=== PATIENT | male | born 2005 | race Caucasian/White ===

== ENCOUNTER 2023-11-12 15:38 | Emergency (ER) | payer OTHER, SELFPAY ==
--- OUTSIDE RECORDS SUMMARY | 2023-11-12 15:41 | XMS REPORT | Continuity of Care Document ---
Author Name Unknown Address [address] [facility] [address] [place] [id number] [facility] thconnect Address [address] [facility] [address] [place] [address] Care Team Providers Care Licensed Psychologist Name Role Phone Shayne Wilkins MD Attending Clinician [phone] Payers Payer Name Policy Type Policy Number Effective Date Expirati on Date Source Social History Social Habit Start Date Stop Date Quantity Comments Source Sex Assigned At [facility] Smoking Status Start Date Stop Date Source Unknown if ever smoked [facility] Vital Signs Vital Name Observation Time Observation Value Comments S ource Respiratory rate 2019-08-08 16:22:00 18 /min [facility] Body weight 2019-08-08 16:22:00 99.746 kg [facility] Oxygen saturation in Arterial blood by Pulse oximetry 2019-08-08 16:22:00 98 /min [facility] Systolic blood pressure 2019-08-08 16:22:00 135 mm[Hg] [facility] Diastolic blood pressure 2019-08-08 16:22:00 86 mm[Hg] [facility] Heart rate 2019-08-08 16:22:00 72 /min [facility] Body temperature 2019-08-08 16:22:00 36.83 [facility] Procedures Procedure Date / Time Performed Performing Clinicia n Source XR CHEST 2 VW 2019-08-08 17:03:48 Shayne Wilkins [facility] EKG-12 LEAD 2019-08-08 16:33:20 Shayne Wilkins [facility] NOTICE OF PRIVACY PRACTICES 2019-08-08 16:09:21 Doctor Unassigned, [place] [facility] CONSENT/REFUSAL FOR DIAGNOSIS AND TREATMENT 2019-08-08 16:09:11 Doctor Unassigned, [place] [facility] Encounters Start Date/Time End Date/Time Encounter Type Admission Type Attending Clinicians Care Facility Care Department Encounter ID Source 2019-08-08 11:25:14 2019-08-08 13:23:00 Emergency Shayne Wilkins [facility] [id number] [facility] Results Test Description Test Time Test Comments Results Resul t Comments Source XR CHEST 2 VW 8 17:08:14 No acute cardiopulmonary disease. * * * * * * * * ORIGINAL REPORT * * * * * * * *CHEST 2 VIEWS: HISTORY:Chest pain TECHNIQUE::?PA and lateral views of the chest are obtained. FINDINGS: The lungs are clear. The heart size and mediastinal silhouetteare normal. No pleural effusion or pneumothorax is seen. [facility], Radiant Results Inft User - 08/08/2019 12:08 PM CDT* * * * * * * * ORIGINAL REPORT * * * * * * * *CHEST 2 VIEWS:HISTORY:Chest painTECHNIQUE:: PA and lateral views of the chest are obtained. FINDINGS: The lungs are clear. The heart size and mediastinal silhouetteare normal. No pleural effusion or pneumothorax is seen.IMPRESSIONNo acute cardiopulmonary disease. [facility]
[2023-11-12] MEDS ORDERED: LIDOCAINE 1% MPF 30 ML VIAL ONE (16:33)
--- NOTE | 2023-11-12 16:42 | EDPHYS ---
Physician Documentation [facility] Name: Josh Saba Age: 18 yrs Sex: Male : 2005 Arrival Date: 11/12/2023 Time: 15:38 Bed 9 Private MD: ED Physician Prashant Kong HPI: 11/12 16:41 This 18 yrs old Male presents to ER via Ambulatory with complaints of PIERCING PROBELM. ms3 16:41 18-year-old male with past medical history of ADD/ADHD, bipolar disorder [place] [facility] [place] for lip piercing embedded in his inner lip. Patient states he was unable to unscrew the piercing and it has been swelling and the packing is now embedded in his lip. Patient states this is occurred over the last 2 weeks. Patient denies pain unless he tries to push the backing out.. Historical: - Allergies: 16:15 No Known Allergies; cm10 - PMHx: 16:15 ADD/ADHD; Bipolar disorder; cm10 - Immunization history:: Adult Immunizations unknown. - Social history:: Smoking status: Reported history of juuling and/or vaping. ROS: 16:41 Constitutional: Negative for fever, and chills. Neck: Negative for injury, pain, and ms3 swelling, Cardiovascular: Negative for chest pain, and palpitations. Respiratory: Negative for shortness of breath, cough, wheezing, and pleuritic chest pain, Abdomen/GI: Negative for abdominal pain, nausea, vomiting, diarrhea, and constipation, MS/Extremity: Negative for injury and deformity, 16:41 ENT: Positive for Swollen upper lip with foreign body, 16:41 All other systems are negative, Exam: 16:41 Constitutional: This is a well developed, well nourished patient who is awake, alert, ms3 and in no acute distress. 16:41 ENT: Mouth: Lips: Swollen with external piercing visible. Erosion of inner lip with backing embedded in upper lip, 16:41 Cardiovascular: Regular rate and rhythm with a normal S1 and S2. No gallops, murmurs, ms3 or rubs. Normal PMI, no JVD. No pulse deficits. Respiratory: Lungs have equal breath sounds bilaterally, clear to auscultation and percussion. No rales, rhonchi or wheezes noted. No increased work of breathing, no retractions or nasal flaring. Abdomen/GI: Soft, non-tender, with normal bowel sounds. No distension or tympany. No guarding or rebound. No evidence of tenderness throughout. Vital Signs: 16:14 BP 129 / 96; Pulse 79; Resp 16; Temp 98.3(TE); Pulse Ox 99% on R/A; Weight 104.33 kg; cm10 Pain 9/10; 16:14 Pain Scale: Adult cm10 Procedures: 16:41 Foreign Body Removal: Lip Piercing, from the upper lip, by using a hemostat, incising ms3 to remove, using lidocaine 1% without epinephrine to anesthesize the area, Dressing: none, The patient tolerated the removal well. MDM: 16:40 Patient medically screened. ms3 16:41 Data reviewed: vital signs, nurses notes, and as a result, I will discharge patient. ms3 Historians other than the Patient: Parent: Patient's mother. Care significantly affected by the following Social Determinants of Health: Poor access to healthcare and/or lack of insurance. Counseling: I had a detailed discussion with the patient and/or guardian regarding the historical points, exam findings, and any diagnostic results supporting the discharge/admit diagnosis, the need for outpatient follow up, to return to the emergency department if symptoms worsen or persist or if there are any questions or concerns that arise at home. Special discussion: I discussed with the patient/guardian in detail that at this point there is no indication for admission to the hospital. It is understood, however, that if the symptoms persist or worsen the patient needs to return immediately for re-evaluation. ED course: Piercing removed. Patient given prescription for Paradox and Keflex. Patient to follow-up with Dr. Norwood in 2 to 3 days. Patient understands and agrees with plan. All questions were answered. Return precautions discussed include worsening symptoms, or any other concerns. Administered Medications: No medications were administered Disposition Summary: 11/12/23 16:41 Discharge Ordered Notes: Location: Home ms3 Condition: Stable ms3 Diagnosis - Piercing embeded in upper lip ms3 Followup: ms3 - With: Presley Norwood DO - When: 2 - 3 days - Reason: Recheck today's complaints Discharge Instructions: - Discharge Summary Sheet ms3 - Skin Foreign Body ms3 Forms: - Medication Reconciliation Form ms3 - Thank You Letter ms3 - Antibiotic Education ms3 - Prescription Opioid Use ms3 - Patient Portal Instructions ms3 - Leadership Thank You Letter ms3 Prescriptions: - Peridex 0.12 % Mucous Membrane Mouthwash - swish 15 milliliter MUCOUS MEMBRANE route after meals and at bedtime; 600 ms3 milliliter; Refills: 0, Product Selection Permitted - Cephalexin 500 mg Oral Capsule - take 1 capsule ORAL route every 8 hours for 10 days; 30 capsule; Refills: 0, ms3 Product Selection Permitted Signatures: Prashant Kong DO DO ms3 Ivis Mendoza, RN RN cm10
--- NOTE | 2023-11-12 16:42 | ER ---
Nurse's Notes [facility] Name: Josh Saba Age: 18 yrs Sex: Male : 2005 Arrival Date: 11/12/2023 Time: 15:38 Bed 9 Private MD: Diagnosis: Piercing embeded in upper lip Presentation: 11/12 16:14 Chief complaint: Patient states: Lip piercing imbedded in lip. Pt states he noticed it cm10 a few days ago. Coronavirus screen: Client denies travel out of the [place] in the last 14 days. Ebola Screen: Patient denies travel to an Ebola-affected area in the 21 days before illness onset. No symptoms or risks identified at this time. Initial Sepsis Screen: Does the patient meet any 2 criteria? No. Patient's initial sepsis screen is negative. Does the patient have a suspected source of infection? No. Patient's initial sepsis screen is negative. Risk Assessment: Do you want to hurt yourself or someone else? Patient reports no desire to harm self or others. Onset of symptoms was November 12, 2023. 16:14 Method Of Arrival: Ambulatory cm10 16:14 Acuity: CARLOS 4 cm10 Triage Assessment: 16:52 General: Appears in no apparent distress. comfortable, Behavior is calm, cooperative. cm10 Pain: Complains of pain in upper vermilion border and upper lip. Neuro: No deficits noted. Level of Consciousness is awake, alert, Oriented to person, place, time, situation. Respiratory: No deficits noted. Airway is patent Respiratory effort is even, unlabored, Respiratory pattern is regular, symmetrical. : No deficits noted. No signs and/or symptoms were reported regarding the genitourinary system. Derm: No deficits noted. Skin is intact, Skin is pink, warm \T\ dry. Musculoskeletal: No deficits noted. Range of motion: intact in all extremities. Historical: - Allergies: 16:15 No Known Allergies; cm10 - PMHx: 16:15 ADD/ADHD; Bipolar disorder; cm10 - Immunization history:: Adult Immunizations unknown. - Social history:: Smoking status: Reported history of juuling and/or vaping. Screenin:53 [facility] ED Fall Risk Assessment (Adult) History of falling in the last 3 months, cm10 including since admission No falls in past 3 months (0 pts) Confusion or Disorientation No (0 pts) Intoxicated or Sedated No (0 pts) Impaired Gait No (0 pts) Mobility Assist Device Used No (0 pt) Altered Elimination No (0 pt) Score/Fall Risk Level 0 - 2 = Low Risk Oriented to surroundings, Maintained a safe environment, Hourly rounding (assess needs \T\ fall precautionary measures) done. Abuse screen: Denies threats or abuse. Denies injuries from another. Nutritional screening: No deficits noted. Tuberculosis screening: No symptoms or risk factors identified. Vital Signs: 16:14 BP 129 / 96; Pulse 79; Resp 16; Temp 98.3(TE); Pulse Ox 99% on R/A; Weight 104.33 kg; cm10 Pain 9/10; 16:14 Pain Scale: Adult cm10 ED Course: 15:41 Patient arrived in ED. mg5 15:43 Prashant Kong DO is Attending Physician. ms3 16:15 Triage completed. cm10 16:15 Arm band placed on Patient placed in an exam room, on a stretcher. cm10 16:41 Presley Norwood DO is Referral Physician. ms3 16:54 Patient has correct armband on for positive identification. Provided Education on: ER cm10 process and procedures. . 16:54 Piercing removal from lip. Patient did not have IV access during this emergency room cm10 visit. Administered Medications: No medications were administered Medication: 16:53 VIS not applicable for this client. cm10 Outcome: 16:41 Discharge ordered by MD. ms3 16:54 Discharged to home ambulatory, cm10 16:54 Condition: good 16:54 Discharge instructions given to patient, Instructed on discharge instructions, follow up and referral plans. medication usage, Demonstrated understanding of instructions, follow-up care, medications, Prescriptions given X 1, 16:55 Patient left the ED. cm10 Signatures: Prashant Kong DO DO ms3 Ivis Mendoza, RAFAEL RN Roxy Smith mg5
[2023-11-12 19:41] VITALS: BP 129/96; TEMP 98.3; O2SAT 99
== END 2023-11-12 16:55 | disposition home or self-care (01) ==
LOC: ER 15:38
DX: S00.551A Superficial foreign body of lip, initial encounter (principal)
CPT/HCPCS: J2001

== ENCOUNTER 2024-11-24 18:25 | Emergency (ER) | payer OTHER ==
--- OUTSIDE RECORDS SUMMARY | 2024-11-24 18:29 | XMS REPORT | Continuity of Care Document ---
Author Name Unknown Address [address] [facility] [address] [place] [address] [facility] thconnect Address [address] [facility] [address] [place] [address] Care Team Providers Care Soaking Tank Worker Name Role Phone Shayne Wilkins MD Attending Clinician Payers Payer Name Policy Type Policy Number Effective Date Expirati on Date Source Social History Social Habit Start Date Stop Date Quantity Comments Source Sex [facility] Smoking Status Start Date Stop Date Source Unknown if ever smoked [facility] Vital Signs Vital Name Observation Time Observation Value Comments S ource Respiratory rate 2019-08-08 16:22:00 18 /min [facility] Body weight 2019-08-08 16:22:00 99.746 kg [facility] Oxygen saturation in Arterial blood by Pulse oximetry 2019-08-08 16:22:00 98 /min [facility] Systolic blood pressure 2019-08-08 16:22:00 135 mm[Hg] [facility] Diastolic blood pressure 2019-08-08 16:22:00 86 mm[Hg] [facility] Heart rate 2019-08-08 16:22:00 72 /min [facility] Body temperature 2019-08-08 16:22:00 36.83 [facility] Procedures Procedure Date / Time Performed Performing Clinicia n Source XR CHEST 2 VW 2019-08-08 17:03:48 Shayne Wilkins [facility] EKG-12 LEAD 2019-08-08 16:33:20 Shayne Wilkins [facility] NOTICE OF PRIVACY PRACTICES 2019-08-08 16:09:21 Doctor Unassigned, [facility] CONSENT/REFUSAL FOR DIAGNOSIS AND TREATMENT 2019-08-08 16:09:11 Doctor Unassigned, [facility] Encounters Start Date/Time End Date/Time Encounter Type Admission Type Attending Clinicians Care Facility Care Department Encounter ID Source 2019-08-08 11:25:14 2019-08-08 13:23:00 Emergency Shayne Wilkins [facility] [id number] [facility] Results Test Description Test Time Test Comments [...] No pleural effusion or pneumothorax is seen. [facility], Radiant Results Inft User - 08/08/2019 12:08 PM CDT* * * * * * * * ORIGINAL REPORT * * * * * * * *CHEST 2 VIEWS:HISTORY:Chest painTECHNIQUE:: PA and lateral views of the chest are obtained. FINDINGS: The lungs are clear. The heart size and mediastinal silhouetteare normal. No pleural effusion or pneumothorax is seen.IMPRESSIONNo acute cardiopulmonary disease. [facility]
[2024-11-24] MEDS ORDERED: IBUPROFEN 400 MG TAB ONE (19:09)
[2024-11-24] MEDS ORDERED: TDAP (DIPHTH,PERTUSS(ACELL),TET VAC) 0.5 ML VIAL IMVAC ONE (19:09)
--- NOTE | 2024-11-24 20:01 | RAD REPORT ---
EXAM: XR Knee Left 3 View HISTORY: [facility] MAIN PAIN Bed Name: IW1 COMPARISON: None TECHNIQUE: 3 views of the left knee were obtained. FINDINGS: No knee effusion is seen. There is no evidence of acute fracture or dislocation. No signif icant degenerative changes are seen. No soft tissue swelling or other soft tissue abnormality is present. IMPRESSION: No evidence of acute osseous abnormality.
--- NOTE | 2024-11-24 20:21 | RAD REPORT ---
EXAM: XR Hand Left 3 View HISTORY: [facility] MAIN PAIN Bed Name: IW1 COMPARISON: None TECHNIQUE: 3 radiographic views of the LEFT hand submitted. FINDINGS: No evidence of acute fracture or dislocation. Joint alignment is maintained. No soft tissu e swelling is seen.. No significant degenerative changes are present. IMPRESSION: No significant bone or joint abnormality.
--- NOTE | 2024-11-24 20:21 | RAD REPORT ---
EXAMINATION: XR Hip Right 2 View CLINICAL INDICATION: Male, 19 years old. [facility] MAIN PAIN Bed Name: IW1 TECHNIQUE: 2 view radiograph of the right hip were obtained. COMPARISON: No prior exam. FINDINGS: No evidence of fracture or dislocation. Normal alignment. No evidence of arthropathy. Lucen t 1.6 cm lesion within the right femoral neck. Soft tissues are unremarkable. IMPRESSION: No acute osseous abnormalities. Lucent 1.6 cm lesion within the right femoral neck, may represent a bone cyst or nonossifying fibroma .
--- NOTE | 2024-11-24 21:25 | ER ---
Nurse's Notes [facility] Name: Josh Saba Age: 19 yrs Sex: Male : 2005 Arrival Date: 11/24/2024 Time: 18:25 Bed DX3 Private MD: Diagnosis: Contusion of left knee;Pain in right hip;Abrasion of abdominal wall, initial encounter;Abrasion of left hand, initial encounter;Abrasion of right elbow, initial encounter Presentation: 11/24 18:55 Chief complaint: Patient states: was on a electric skateboard and fell off, landed on left leg weird , has pain and swelling to left knee, did not hit his head. Coronavirus screen: At this time, the client does not indicate any symptoms associated with coronavirus-19. Ebola Screen: No symptoms or risks identified at this time. Initial Sepsis Screen: Does the patient meet any 2 criteria? No. Patient's initial sepsis screen is negative. Does the patient have a suspected source of infection? No. Patient's initial sepsis screen is negative. Risk Assessment: Do you want to hurt yourself or someone else? Patient reports no desire to harm self or others. Onset of symptoms was November 24, 2024. 18:55 Method Of Arrival: Wheelchair iw 18:55 Acuity: CARLOS 3 iw Triage Assessment: 20:35 General: Appears in no apparent distress. comfortable, Behavior is calm, cooperative, cm10 appropriate for age. Pain: Complains of pain in left wrist and left knee. Neuro: No deficits noted. Level of Consciousness is awake, alert, obeys commands, Oriented to person, place, time, situation, Appropriate for age. Respiratory: No deficits noted. Airway is patent Respiratory effort is even, unlabored, Respiratory pattern is regular, symmetrical. Musculoskeletal: Reports pain in left wrist and left knee. Injury Description: Abrasion sustained to right elbow, left arm, right knee and left knee. Historical: - Allergies: 18:56 No Known Allergies; iw - Home Meds: 18:56 None [Active]; iw - PMHx: 18:56 ADD/ADHD; Bipolar disorder; iw - PSHx: 18:56 None; iw - Immunization history:: Last tetanus immunization: unknown. - Infectious Disease History:: Denies. - Social history:: Smoking status: Reported history of juuling and/or vaping. Screenin:36 [facility] ED Fall Risk Assessment (Adult) History of falling in the last 3 months, cm10 including since admission Yes- single mechanical fall (1 pt) Confusion or Disorientation No (0 pts) Intoxicated or Sedated No (0 pts) Impaired Gait Yes (1 pt) Mobility Assist Device Used Yes (1 pt) Altered Elimination No (0 pt) Score/Fall Risk Level 3 or more points = High Risk Oriented to surroundings, Maintained a safe environment, Hourly rounding (assess needs \T\ fall precautionary measures) done. Abuse screen: Denies threats or abuse. Denies injuries from another. Nutritional screening: No deficits noted. Tuberculosis screening: No symptoms or risk factors identified. Vital Signs: 18:55 BP 110 / 67; Pulse 93; Resp 16; Temp 98.9; Pulse Ox 100% on R/A; Weight 86.18 kg; iw Height 6 ft. 2 in. ; Pain 8/10; 18:55 Body Mass Index 24.39 (86.18 kg, 187.96 cm) iw 18:55 Pain Scale: Adult iw ED Course: 18:26 Patient arrived in ED. ra3 18:27 Barney Ibarra MD is Attending Physician. ec2 18:27 Beau Mederos PA is PHCP. cp 18:56 Triage completed. iw 18:57 Arm band placed on. iw 19:59 XRAY Hip RIGHT 2 view In Process Unspecified. EDMS 19:59 XRAY Knee LEFT 3 view In Process Unspecified. EDMS 19:59 XRAY Hand LEFT 3 View In Process Unspecified. EDMS 20:37 Patient has correct armband on for positive identification. Provided Education on: ER cm10 process and procedures.. 21:50 No provider procedures requiring assistance completed. Patient did not have IV access cm10 during this emergency room visit. Dressings: non-adherent dressing x 1 right knee and left knee and left wrist. Crutch training done. 21:50 Wound care: to abrasion, located on right leg and right arm and right knee and right cm10 elbow and left leg and left arm and left knee and left wrist was cleaned with dressed with Neosporin. Administered Medications: 19:11 Drug: Ibuprofen PO 800 mg PO once Route: PO; cm10 21:14 Follow up: Response: No adverse reaction cm10 19:11 Drug: Boostrix Tdap IM 0.5 ml IM once; as a single dose Route: IM; Site: left deltoid; cm10 21:14 Follow up: Response: (VIS) Vaccine information sheet provided today. Questions and/or cm10 concerns addressed. VIS edition date: Jul 06, 2021.; No adverse reaction Medication: 20:36 Vaccine Information Statement (VIS) provided today. Questions and/or concerns cm10 addressed. VIS edition date: July 06, 2021. Outcome: 21:25 Discharge ordered by . silvio 21:57 Discharged to home with crutches, with family, cm10 21:57 Condition: good 21:57 Discharge instructions given to patient, Instructed on discharge instructions, follow up and referral plans. medication usage, wound care, Demonstrated understanding of instructions, follow-up care, medications, wound care, Prescriptions given X 2, 21:58 Patient left the ED. cm10 Signatures: Dispatcher [employer] Nati Durant RN RN iw Page, Corey, PA PA cp Martinez, Clarissa, RN RN cm10 Barney Ibarra MD MD ec2 Alexandra Cedeno ra3
--- NOTE | 2024-11-24 21:25 | EDPHYS ---
Physician Documentation [facility] Name: Josh Saba Age: 19 yrs Sex: Male : 2005 Arrival Date: 11/24/2024 Time: 18:25 Bed DX3 Private MD: ED Physician Barney Ibarra HPI: 11/24 19:10 This 19 yrs old Male presents to ER via Wheelchair with complaints of Hand Injury - cp Left. 19:10 The patient or guardian reports an abrasion, injury. cp 19:10 The complaints affect the akhtar side of left hand. Details of fall: The patient fell cp from an upright position, riding electric skateboard, and struck a concrete surface. Onset: The symptoms/episode began/occurred just prior to arrival. Associated injuries: The patient sustained injury to the abdomen, specifically the right lower flank, abrasion, left knee, abrasion, swelling. Historical: - Allergies: 18:56 No Known Allergies; iw - Home Meds: 18:56 None [Active]; iw - PMHx: 18:56 ADD/ADHD; Bipolar disorder; iw - PSHx: 18:56 None; iw - Immunization history:: Last tetanus immunization: unknown. - Infectious Disease History:: Denies. - Social history:: Smoking status: Reported history of juuling and/or vaping. ROS: 19:15 Constitutional: Negative for body aches, chills, fever, poor PO intake, cp 19:15 Eyes: Negative for injury, pain, redness, and discharge, cp 19:15 Neck: Negative for pain with movement, pain at rest, stiffness, 19:15 Cardiovascular: Negative for chest pain, 19:15 Respiratory: Negative for cough, shortness of breath, wheezing, 19:15 Abdomen/GI: Negative for vomiting, diarrhea, constipation, 19:15 Back: Negative for pain at rest, pain with movement, 19:15 MS/extremity: Positive for pain, tenderness, of the left hand and left knee, 19:15 Neuro: Negative for altered mental status, headache, loss of consciousness, syncope, weakness, 19:15 All other systems are negative, Exam: 19:15 Constitutional: The patient appears in no acute distress, alert, awake, non-toxic, well cp developed, well nourished, 19:15 Head/Face: Normocephalic, atraumatic. cp 19:15 Neck: C-spine: vertebral tenderness, is not appreciated, crepitus, is not appreciated, ROM/movement: is normal, is supple, without pain, no range of motions limitations, 19:15 Chest/axilla: Inspection: normal, Palpation: is normal, no crepitus, no tenderness, 19:15 Cardiovascular: Rate: normal, 19:15 Respiratory: the patient does not display signs of respiratory distress, Respirations: normal, no use of accessory muscles, no retractions, labored breathing, is not present, Breath sounds: are clear throughout, no decreased breath sounds, 19:15 Abdomen/GI: Inspection: small abrasion noted right lower flank with tenderness, Palpation: soft, in all quadrants, mild abdominal tenderness, in the right lower flank area, rebound tenderness, is not appreciated, involuntary guarding, is not appreciated, 19:15 Back: pain, is absent, ROM is normal, 19:15 Musculoskeletal/extremity: Extremities: noted in the right hip: tenderness, noted in the left knee: abrasion, swelling, tenderness, no evidence of decreased ROM, deformity, noted in the left hand: moderate size abrasion across akhtar side of hand with mild bleeding, no obvious deformity, full AROM, 19:15 Skin: injury, abrasion(s), small abrasion noted, of the right elbow, 19:15 Neuro: Orientation: to person, place \T\ time. Mentation: is normal, Motor: moves all fours, strength is normal, Sensation: is normal, Vital Signs: 18:55 BP 110 / 67; Pulse 93; Resp 16; Temp 98.9; Pulse Ox 100% on R/A; Weight 86.18 kg; iw Height 6 ft. 2 in. ; Pain 8/10; 18:55 Body Mass Index 24.39 (86.18 kg, 187.96 cm) iw 18:55 Pain Scale: Adult iw MDM: 19:03 Medical Screening Exam initiated cp 20:00 Differential diagnosis: dislocation, closed fracture, contusion, abrasion, laceration. cp 21:25 Data reviewed: vital signs, nurses notes, radiologic studies, plain films, and as a cp result, I will discharge patient. 21:25 I considered the following discharge prescriptions or medication management in the emergency department Medications were administered in the Emergency Department. See MAR. Counseling: I had a detailed discussion with the patient and/or guardian regarding the historical points, exam findings, and any diagnostic results supporting the discharge/admit diagnosis, radiology results, to return to the emergency department if symptoms worsen or persist or if there are any questions or concerns that arise at home. Response to treatment: the patient's symptoms have markedly improved after treatment, and as a result, I will discharge patient. ED course: discussed incidental finding on xray of right hip and recommendation of outpatient f/u for repeat xrays and/or CT. 11/24 19:06 Order name: XRAY Hip RIGHT 2 view; Complete Time: 21:20 cp 11/24 19:06 Order name: XRAY Knee LEFT 3 view; Complete Time: 21:20 cp 11/24 19:06 Order name: XRAY Hand LEFT 3 View; Complete Time: 21:20 cp 11/24 21:23 Order name: Dio wrap-joint; Complete Time: 21:56 cp 11/24 21:23 Order name: Crutches; Complete Time: 21:56 cp 11/24 21:23 Order name: Wound Care: please clean, dress wounds; Complete Time: 21:56 cp Administered Medications: 19:11 Drug: Ibuprofen PO 800 mg PO once Route: PO; cm10 21:14 Follow up: Response: No adverse reaction cm10 19:11 Drug: Boostrix Tdap IM 0.5 ml IM once; as a single dose Route: IM; Site: left deltoid; cm10 21:14 Follow up: Response: (VIS) Vaccine information sheet provided today. Questions and/or cm10 concerns addressed. VIS edition date: Jul 06, 2021.; No adverse reaction Disposition Summary: 11/24/24 21:25 Discharge Ordered Notes: Location: Home cp Problem: new cp Symptoms: have improved cp Condition: Stable cp Diagnosis - Contusion of left knee cp - Pain in right hip cp - Abrasion of abdominal wall, initial encounter cp - Abrasion of left hand, initial encounter cp - Abrasion of right elbow, initial encounter cp Followup: cp - With: Private Physician - When: 2 - 3 days - Reason: Worsening of condition Discharge Instructions: - Discharge Summary Sheet cp - Abrasion cp - Acute Knee Pain, Adult cp - Hip Pain cp - Hand Pain cp Forms: - Medication Reconciliation Form cp - Antibiotic Education cp - Prescription Opioid Use cp - Patient Portal Instructions cp - Leadership Thank You Letter cp Prescriptions: - mupirocin 2 % Topical ointment - apply 1 application TOPICAL route 3 times per day; 30 gram tube; Refills: 0, cp Product Selection Permitted - Ibuprofen 800 mg Oral Tablet - take 1 tablet ORAL route every 8 hours As needed take with food; 30 tablet; cp Refills: 0, Product Selection Permitted Addendum: 11/27/2024 21:40 I was immediately available for consultation during this patient's visit. I did not e c2 personally see the patient or discuss the patient with the MIKE. . Signatures: Dispatcher [employer] Nati Durant RN RN iw Beau Mederos PA PA cp Martinez, Clarissa, RN RN cm10 Barney Ibarra MD MD ec2
[2024-11-24 22:03] VITALS: BP 110/67; TEMP 98.9; O2SAT 100
== END 2024-11-24 21:58 | disposition home or self-care (01) ==
LOC: ER 18:25
DX: S80.02XA Contusion of left knee, initial encounter (principal); S30.811A Abrasion of abdominal wall, initial encounter; S60.512A Abrasion of left hand, initial encounter; S50.311A Abrasion of right elbow, initial encounter; M25.551 Pain in right hip; F17.290 Nicotine dependence, other tobacco product, uncomplicated; V00.131A Fall from skateboard, initial encounter; Y93.51 Activity, roller skating (inline) and skateboarding; Y92.9 Unspecified place or not applicable; Z23 Encounter for immunization
CPT/HCPCS: 96372; 99284

== ENCOUNTER 2025-04-21 11:06 | Emergency (ER) | payer OTHER ==
--- OUTSIDE RECORDS SUMMARY | 2025-04-21 11:09 | XMS REPORT | Continuity of Care Document ---
Author Name Unknown Address [address] [facility] [address] [place] [address] Organization [facility] [place] Address [address] [facility] [address] [place] [address] Care Team Providers Care Retreader Name Role Phone Shayne Wilkins MD Attending Clinician [phone] Payers Payer Name Policy Type Policy Number Effective Date Expirati on Date Source Social History Social Habit Start Date Stop Date Quantity Comments Source Sex Assigned At [facility] Smoking Status Start Date Stop Date Source Unknown if ever smoked [facility] Vital Signs Vital Name Observation Time Observation Value Comments S ource Respiratory rate 2019-08-08 16:22:00 18 /min [facility] Body weight 2019-08-08 16:22:00 99.746 kg [facility] Oxygen saturation in Arterial blood by Pulse oximetry 2019-08-08 16:22:00 98 /min [facility] Systolic blood pressure 2019-08-08 16:22:00 135 mm[Hg] [facility] Diastolic blood pressure 2019-08-08 16:22:00 86 mm[Hg] [facility] Heart rate 2019-08-08 16:22:00 72 /min [facility] Body temperature 2019-08-08 16:22:00 36.83 Jazmin [facility] Procedures Procedure Date / Time Performed Performing Clinicia n Source XR CHEST 2 VW 2019-08-08 17:03:48 Shayne Wilkins [facility] EKG-12 LEAD 2019-08-08 16:33:20 Shayne Wilkins [facility] NOTICE OF PRIVACY PRACTICES 2019-08-08 16:09:21 Doctor Unassigned, [place] [facility] CONSENT/REFUSAL FOR DIAGNOSIS AND TREATMENT 2019-08-08 16:09:11 Doctor Unassigned, [place] [facility] Encounters Start Date/Time End Date/Time Encounter Type Admission Type Attending Clinicians Care Facility Care Department Encounter ID Source 2019-08-08 11:25:14 2019-08-08 13:23:00 Emergency Shayne Wilkins [facility] [id number] [facility] Results Test Description Test Time [...] No pleural effusion or pneumothorax is seen. [facility], Radiant Results Inft User - 08/08/2019 12:08 PM CDT* * * * * * * * ORIGINAL REPORT * * * * * * * *CHEST 2 VIEWS:HISTORY:Chest painTECHNIQUE:: PA and lateral views of the chest are obtained. FINDINGS: The lungs are clear. The heart size and mediastinal silhouetteare normal. No pleural effusion or pneumothorax is seen.IMPRESSIONNo acute cardiopulmonary disease. [facility]
[2025-04-21] MEDS ORDERED: CEPHALEXIN 250 MG CAP ONE (12:22)
[2025-04-21] MEDS ORDERED: BACI/NEOMYCIN/POLY OINT 15GM TOP ONE (12:22)
[2025-04-21] MEDS ORDERED: LIDOCAINE 2% W/EPI 1:200,000 MPF 20 ML VIAL IM ONE (12:22)
--- NOTE | 2025-04-21 14:00 | ER ---
Nurse's Notes [facility] Name: Josh Saba Age: 19 yrs Sex: Male : 2005 Arrival Date: 04/21/2025 Time: 11:06 Bed 12 Private MD: Diagnosis: Puncture wound with foreign body, left foot-removed, glass Presentation: 04/21 11:34 Chief complaint: Patient states: he was running outside on Friday04/19/25 barefoot, ap3 and believes he either cut the bottom of his right foot, or got something stuck in it. Coronavirus screen: At this time, the client does not indicate any symptoms associated with coronavirus-19. Ebola Screen: No symptoms or risks identified at this time. Initial Sepsis Screen: Does the patient meet any 2 criteria? No. Patient's initial sepsis screen is negative. Does the patient have a suspected source of infection? No. Patient's initial sepsis screen is negative. Risk Assessment: Do you want to hurt yourself or someone else? Patient reports no desire to harm self or others. Onset of symptoms was April 19, 2025. 11:34 Method Of Arrival: Ambulatory ap3 11:34 Acuity: CARLOS 4 ap3 Triage Assessment: 11:36 General: Appears in no apparent distress. Behavior is calm, cooperative, appropriate ap3 for age. Pain: Complains of pain in ball of right foot. Neuro: Level of Consciousness is awake, alert, obeys commands, Oriented to person, place, time, situation, Appropriate for age. Cardiovascular: Patient's skin is warm and dry. Respiratory: Airway is patent Respiratory effort is even, unlabored, Respiratory pattern is regular, symmetrical. Musculoskeletal: Range of motion: intact in all extremities. Injury Description: foot injury when running barefoot 04/19/25. Historical: - Allergies: 11:35 No Known Allergies; ap3 - PMHx: 11:35 ADD/ADHD; Bipolar disorder; ap3 - Immunization history:: Last tetanus immunization: unknown. - Infectious Disease History:: Denies. - Social history:: Smoking status: Smoking status: Reported history of juuling and/or vaping. Patient uses street drugs, marijuana. Screenin:37 [facility] ED Fall Risk Assessment (Adult) History of falling in the last 3 months, ap3 including since admission No falls in past 3 months (0 pts) Confusion or Disorientation No (0 pts) Intoxicated or Sedated No (0 pts) Impaired Gait No (0 pts) Mobility Assist Device Used No (0 pt) Altered Elimination No (0 pt) Score/Fall Risk Level 0 - 2 = Low Risk Oriented to surroundings, Maintained a safe environment, Educated pt \T\ family on fall prevention, incl call for assistance when getting out of bed, Assessed \T\ reinforced patient's understanding of fall precautions, Hourly rounding (assess needs \T\ fall precautionary measures) done, Used ambulatory aids as needed (educated on \T\ assisted with). Abuse screen: Denies threats or abuse. Nutritional screening: No deficits noted. Tuberculosis screening: No symptoms or risk factors identified. Vital Signs: 11:34 BP 127 / 82; Pulse 68; Resp 17; Temp 98.6; Pulse Ox 100% ; Weight 88.45 kg; Height 6 ap3 ft. 2 in. ; Pain 7/10; 11:34 Body Mass Index 25.04 (88.45 kg, 187.96 cm) ap3 11:34 Pain Scale: Adult ap3 ED Course: 11:07 Patient arrived in ED. gl 11:13 Beau Orellana MD is Attending Physician. alondra 11:35 Triage completed. ap3 11:38 Arm band placed on right wrist. ap3 12:35 XRAY Foot RIGHT 3 View In Process Unspecified. EDMS 13:58 Alex Mendoza MD is Referral Physician. alondra 14:09 Assist provider with laceration repair on right foot Set up tray. Performed by Beau [email or web address] Esteban JOSHI Patient tolerated well. 14:10 Patient has correct armband on for positive identification. Provided Education on: ap3 discharge instructions. 14:10 Patient did not have IV access during this emergency room visit. ap3 Administered Medications: 12:28 Drug: Cephalexin PO 500 mg PO once Route: PO; ap3 14:07 Follow up: Response: No adverse reaction ap3 14:07 Drug: Lidocaine-Epinephrine Infiltration -1%: (1:100,000) 3 ml 20 ml Infiltration once; ap3 to bedside {Note: by dr orellana.} Volume: 20 ml; Route: Infiltration; 14:08 Follow up: Response: No adverse reaction ap3 14:07 Drug: Lpregwaf-Oetqqgzklm-Tjhzesxqw Topical Ointment 1 application Topical once Route: ap3 Topical; Site: affected area; 14:08 Follow up: Response: No adverse reaction ap3 Medication: 14:10 VIS not applicable for this client. ap3 Outcome: 13:59 Discharge ordered by . alondra 14:10 Discharged to home ambulatory, with family, ap3 14:10 Condition: good 14:10 Discharge instructions given to patient, family, Instructed on discharge instructions, follow up and referral plans. medication usage, Demonstrated understanding of instructions, follow-up care, medications, Prescriptions given X 3, 14:11 Patient left the ED. ap3 Signatures: Dispatcher [employer] EDMI Beau Orellana MD MD cha Prokisch, Amanda, RN RN ap3 Brianna Diaz, Reg Reg gl
--- NOTE | 2025-04-21 14:00 | EDPHYS ---
Physician Documentation [facility] Name: Josh Saba Age: 19 yrs Sex: Male : 2005 Arrival Date: 04/21/2025 Time: 11:06 Bed 12 Private MD: ED Physician Beau Orellana HPI: 04/21 13:53 This 19 yrs old Male presents to ER via Ambulatory with complaints of Foot alondra Injury. 13:53 The patient presents with pain, that is acute, a puncture wound. The complaints affect alondra the right foot. Context: resulted from the patient stepping on glass. Onset: The symptoms/episode began/occurred 2 day(s) ago. Modifying factors: The symptoms are alleviated by elevation of extremity, the symptoms are aggravated by weight bearing, wearing shoes. Associated signs and symptoms: The patient has no apparent associated signs or symptoms. Severity of symptoms: At their worst the symptoms were moderate, in the emergency department the symptoms are unchanged. The patient has not experienced similar symptoms in the past. Historical: - Allergies: 11:35 No Known Allergies; ap3 - PMHx: 11:35 ADD/ADHD; Bipolar disorder; ap3 - Immunization history:: Last tetanus immunization: unknown. - Infectious Disease History:: Denies. - Social history:: Smoking status: Smoking status: Reported history of juuling and/or vaping. Patient uses street drugs, marijuana. ROS: 13:55 Constitutional: Negative for fever, chills, and weight loss, Eyes: Negative for injury, alondra pain, redness, and discharge, ENT: Negative for injury, pain, and discharge, Neck: Negative for injury, pain, and swelling, Cardiovascular: Negative for chest pain, palpitations, and edema, Respiratory: Negative for shortness of breath, cough, wheezing, and pleuritic chest pain, Abdomen/GI: Negative for abdominal pain, nausea, vomiting, diarrhea, and constipation, Back: Negative for injury and pain, : Negative for injury, bleeding, discharge, and swelling, Skin: Negative for injury, rash, and discoloration, Neuro: Negative for headache, weakness, numbness, tingling, and seizure, Psych: Negative for depression, anxiety, suicide ideation, homicidal ideation, and hallucinations, Allergy/Immunology: Negative for hives, rash, and allergies, Endocrine: Negative for neck swelling, polydipsia, polyuria, polyphagia, and marked weight changes, Hematologic/Lymphatic: Negative for swollen nodes, abnormal bleeding, and unusual bruising, 13:55 MS/extremity: Positive for injury or acute deformity, pain, swelling, tenderness, of the ball of left foot, Exam: 13:55 Constitutional: This is a well developed, well nourished patient who is awake, alert, alondra and in no acute distress. Head/Face: Normocephalic, atraumatic. Eyes: Pupils equal round and reactive to light, extra-ocular motions intact. Lids and lashes normal. Conjunctiva and sclera are non-icteric and not injected. Cornea within normal limits. Periorbital areas with no swelling, redness, or edema. ENT: Nares patent. No nasal discharge, no septal abnormalities noted. Tympanic membranes are normal and external auditory canals are clear. Oropharynx with no redness, swelling, or masses, exudates, or evidence of obstruction, uvula midline. Mucous membranes moist. Neck: Trachea midline, no thyromegaly or masses palpated, and no cervical lymphadenopathy. Supple, full range of motion without nuchal rigidity, or vertebral point tenderness. No Meningismus. Chest/axilla: Normal chest wall appearance and motion. Nontender with no deformity. No lesions are appreciated. Cardiovascular: Regular rate and rhythm with a normal S1 and S2. No gallops, murmurs, or rubs. Normal PMI, no JVD. No pulse deficits. Respiratory: Lungs have equal breath sounds bilaterally, clear to auscultation and percussion. No rales, rhonchi or wheezes noted. No increased work of breathing, no retractions or nasal flaring. Abdomen/GI: Soft, non-tender, with normal bowel sounds. No distension or tympany. No guarding or rebound. No evidence of tenderness throughout. Back: No spinal tenderness. No costovertebral tenderness. Full range of motion. Skin: Warm, dry with normal turgor. Normal color with no rashes, no lesions, and no evidence of cellulitis. Neuro: Awake and alert, GCS 15, oriented to person, place, time, and situation. Cranial nerves II-XII grossly intact. Motor strength 5/5 in all extremities. Sensory grossly intact. Cerebellar exam normal. Normal gait. Psych: Awake, alert, with orientation to person, place and time. Behavior, mood, and affect are within normal limits. 13:55 Musculoskeletal/extremity: ROM: intact in all extremities, full active range of motion, full passive range of motion, Circulation is intact in all extremities. Compartment Syndrome exam of affected extremity: is normal. DVT Exam: No signs of deep vein thrombosis. negative Homans' sign noted on exam, no appreciated bluish discoloration, no erythema, no increased warmth, pain, swelling, tenderness, that is mild, of the left foot, Vital Signs: 11:34 BP 127 / 82; Pulse 68; Resp 17; Temp 98.6; Pulse Ox 100% ; Weight 88.45 kg; Height 6 ap3 ft. 2 in. ; Pain 7/10; 11:34 Body Mass Index 25.04 (88.45 kg, 187.96 cm) ap3 11:34 Pain Scale: Adult ap3 Procedures: 14:00 Foreign Body Removal: a fragment of glass, from the left left foot, by needle, [facility] tweezers, Dressinx4s were used to dress the wound, The patient tolerated the removal well. MDM: 11:13 Medical Screening Exam initiated [facility] 13:57 Differential diagnosis: foreign body. Data reviewed: vital signs, nurses notes, [facility] radiologic studies, plain films. Consideration of Admission/Observation Escalation of care including admission/observation considered. I considered the following discharge prescriptions or medication management in the emergency department Medications were administered in the Emergency Department. See MAR. Independent interpretation of the following test(s) in the Emergency Department X-Ray: My interpretation is fb foot. Test considered but Not performed: Labs: no labs. Care significantly affected by the following chronic conditions: bipolar, add/adhd. Counseling: I had a detailed discussion with the patient and/or guardian regarding the historical points, exam findings, and any diagnostic results supporting the discharge/admit diagnosis, radiology results. 04/21 11:50 Order name: XRAY Foot RIGHT 3 View ap3 04/21 12:18 Order name: Dressing - Wound; Complete Time: 14:07 [facility] 04/21 12:18 Order name: Gloves, Sterile; Complete Time: 12:28 [facility] 04/21 12:18 Order name: Setup Suture Tray; Complete Time: 12:23 [facility] 04/21 12:18 Order name: Post-op Orthopedic Shoe; Complete Time: 14:07 [facility] Administered Medications: 12:28 Drug: Cephalexin PO 500 mg PO once Route: PO; ap3 14:07 Follow up: Response: No adverse reaction ap3 14:07 Drug: Lidocaine-Epinephrine Infiltration -1%: (1:100,000) 3 ml 20 ml Infiltration once; ap3 to bedside {Note: by dr orellana.} Volume: 20 ml; Route: Infiltration; 14:08 Follow up: Response: No adverse reaction ap3 14:07 Drug: Oltprrdx-Kyafuijwhh-Hxuofynlk Topical Ointment 1 application Topical once Route: ap3 Topical; Site: affected area; 14:08 Follow up: Response: No adverse reaction ap3 Disposition Summary: 04/21/25 13:59 Discharge Ordered Notes: Location: Home [facility] Problem: new alondra Symptoms: have improved alondra Condition: Stable alondra Diagnosis - Puncture wound with foreign body, left foot - removed, glass alondra Followup: alondra - With: Private Physician - When: 2 - 3 days - Reason: Recheck today's complaints, Continuance of care, Re-evaluation by your physician Followup: [facility] - With: Alex Mendoza MD - When: 2 - 3 days - Reason: Recheck today's complaints, Re-evaluation by your physician Discharge Instructions: - Discharge Summary Sheet alondra - Puncture Wound alondra - Swallowed Foreign Body, Adult alondra - Puncture Wound, [id number] [facility] - Skin Foreign Body [facility] Forms: - Medication Reconciliation Form [facility] - Antibiotic Education [facility] - Prescription Opioid Use [facility] - Patient Portal Instructions [facility] - Leadership Thank You Letter [facility] - Work release form ap3 Prescriptions: - Neosporin (iea-kry-ggocc) 3.5mg-400 unit- 5,000 unit/gram Topical ointment - apply 1 application TOPICAL route 3 times per day; 20 application; Refills: 0, [facility] Product Selection Permitted - Cephalexin 500 mg Oral capsule - take 1 capsule ORAL route every 6 hours for 7 days; 28 capsule; Refills: 0, [facility] Product Selection Permitted - Ibuprofen 600 mg Oral tablet - take 1 tablet ORAL route every 6 hours As needed take with food; 20 tablet; [facility] Refills: 0, Product Selection Permitted Signatures: Dispatcher [employer] Beau Donnelly MD MD cha Prokisch, Amanda RN RN ap3
[2025-04-21 14:19] VITALS: BP 127/82; TEMP 98.6; O2SAT 100
--- NOTE | 2025-04-21 14:37 | RAD REPORT ---
EXAMINATION: XR RIGHT FOOT CLINICAL INDICATION: Male, 19 years old. PAIN TECHNIQUE: Multiple views of the right foot were obtained. COMPARISON: No prior exam. FINDINGS: Small radiopaque loose body is seen along the anterior plantar soft tissues of the forefoot superimposed on the base of the second toe. No fracture or dislocation. Tiny plantar calcaneal spur.
== END 2025-04-21 14:11 | disposition home or self-care (01) ==
LOC: ER 11:06
DX: S91.342A Puncture wound with foreign body, left foot, initial encounter (principal)
CPT/HCPCS: 99283